=== PATIENT | male | born 1980 | race Caucasian/White ===

== ENCOUNTER 2022-09-15 01:22 | Outpatient (CLI) | payer MEDICAID, SELFPAY ==
--- NOTE | 2022-09-15 | DI.US_ITS ---
Exam(s) US HERNIA EXAM: US HERNIA CLINICAL HISTORY: PAINFUL BULGE, ASSESS FOR HERNIA,K40.90. TECHNIQUE: Ultrasound was performed using standard protocol. COMPARISON: No exams were available for comparison FINDINGS: Sonographic assessment utilizing grayscale and color Doppler imaging was performed and targeted to th e area of clinical concern. There is a fatty containing right inguinal hernia measured at 6 x 1.5 x 2.6 cm with a roughly 2 2 bossman timeter neck. No adenopathy or fluid. IMPRESSION: Fatty containing right inguinal hernia. DATA REPOSITORY:
== END 2022-09-15 01:42 ==
PROVIDERS: Visit Provider Family Medicine
DX: K40.90 Unilateral inguinal hernia, without obstruction or gangrene, not specified as recurrent (principal)
CPT/HCPCS: 76857

== ENCOUNTER 2022-11-20 17:29 | Outpatient (CLI) | payer OTHER, SELFPAY ==
--- NOTE | 2022-11-20 13:30 | DI.RAD_ITS ---
Exam(s) XR HAND RT COMPLETE EXAM: XR HAND RT COMPLETE CLINICAL HISTORY: Crush Injury with Deformity - R Hand S67.20XA. TECHNIQUE: 2D digital imaging was performed of the right hand. Three images were obtained. AP, late ral and oblique views were obtained. COMPARISON: No exams were available for comparison FINDINGS: BONES: No acute fracture is present. No bony destructive lesion is seen. JOINTS: No dislocation present. SOFT TISSUE: Normal. IMPRESSION: Unremarkable radiographs of the right hand. DATA REPOSITORY: RADIATION DOSE DELIVERED:
== END 2022-11-20 17:49 ==
PROVIDERS: Visit Provider Nurse Practitioner Family
DX: S67.21XA Crushing injury of right hand, initial encounter
CPT/HCPCS: 73130

== ENCOUNTER 2023-06-26 19:22 | Emergency (ER) | payer MEDICAID, SELFPAY ==
[2023-06-26] VITALS (27 sets, daily range): BP systolic 107–158; BP diastolic 76–110; PULSE 86–102; RESP 8–30; TEMP 36.9; O2SAT 97–100
--- NOTE | 2023-06-26 19:15 | RT.EKG_ITS ---
APPROVED REPORT Exam: Resting ECG Reason for Exam: stroke sx Patient Location: E HR:105 bpm ECG Measurements Heart Rate 105 AXIS MA 204 P 69 QRSd 101 QRS 36 QT 344 T 50 QTc 455 Conclusion sinus tach normal axis no priors
--- NOTE | 2023-06-26 19:30 | DI.CT_ITS ---
Exam(s) CT HEAD - STROKE PROTOCOL EXAM: CT HEAD - STROKE PROTOCOL CLINICAL HISTORY: AMS, Tremor. TECHNIQUE: Imaging Protocol: Axial computed tomography images with coronal and sagittal reformatted images were created and reviewed COMPARISON: No exams were available for comparison FINDINGS: Ventricles and Extra axial spaces: Normal in size and morphology for the patient's age. Hemorrhage: None. Cerebral parenchyma: Normal. Midline shift: None. Brainstem/Cerebellum: Normal. Calvarium: Normal. Visualized Paranasal sinuses/Mastoids: Clear. Soft Tissues: Unremarkable. IMPRESSION: No acute intracranial process. RADIATION DOSE DELIVERED: Total DLP DATA REPOSITORY: All CT scans at this facility are submitted to the National Radiology Data Registry (NRDR) Dose Index Registry (DIR) with the [employer] (A[employer]). RADIATION OPTIMIZATION: All CT scans at this facility use at least one of these dose optimization te chniques: automated exposure control; mA and/or kV adjustment per patient size (includes targeted exa ms where dose is matched to clinical indication); or iterative reconstruction.
--- NOTE | 2023-06-26 19:38 | W.ED.GENAD ---
Discharge Plan Disposition Patient Disposition: Home Condition: Improving Discharge Details Clinical Impression: Speech abnormality, Stress reaction, Anxiety Primary Care Provider: None,None ED Provider: Karen Diego Home Meds and New Rx's Prescriptions: Continued methylphenidate HCl [Ritalin] 5 mg tablet 5 mg PO DAILY buprenorphine-naloxone [Suboxone] 4-1 mg film 1 film buccal Q24H Rx Instructions: place 1 strip/tab under (each) side of tongue atenolol 25 mg tablet 25 mg PO DAILY amitriptyline 100 mg tablet 100 mg PO QHS Discharge Instructions Instructions: Anxiety (ED) Additional Instructions: This time at this time there is no evidence of stroke. I do feel that this is from anxiety. Please follow-up with community connections and call 211 for resources if needed for housing. Follow up with primary care provider in 3-5 days. Return to ED sooner if any worsening headache, blurry vision, double vision, weakness on 1 side of your body or the other or concerns. Increase oral fluids. Please take Tylenol or Ibuprofen with food every 4-6 hours as needed for pain and swelling. Referrals: Marifer Lundy MD [ [facility] STAFF PHYSICIAN] - Return if symptoms worsen Discharge Data Discharge Physician: Karen Diego Medical Decision Making 43-year-old male presents to the ER via POV with a chief complaint of tremors, difficulty speaking and talking for the last 3 days which he reports he has had before but they usually go away. He denies any illicit drugs. He reports some left shoulder pain. He denies any chest pain no headache no blurry vision no dizziness. He is hypertensive and tachycardic upon arrival. Patient reports eating and drinking and swallowing okay. On initial presentation he has no obvious focal neurodeficits however he does have left eye lid droop and left gaze deviation. Director Of Emergency Nursing are equal bilaterally no leg drop, no pronator drift. No other facial droop. He is able to speak in full sentences during exam and is A&Ox3. Patient denies any illicit drug use. He does take methylphenidate 5 mg tablets daily, Suboxone 4 mg sublingual film, atenolol 25 mg tablet and 100 mg of amitriptyline at bedtime. Work-up ordered including CBC CMP serial troponins, urine drug screen, TCA level, urinalysis, CT head stroke protocol. CT head without contrast shows no acute abnormality. Patient is currently talking on the phone. Benadryl 25 mg IV ordered and normal saline. Will reevaluate after medication here UDS at this time labs are pending. Patient reevaluated after medication administration. His symptoms are largely improved at this time. Upon further discussion he states that he has been sleeping in his car for the last 2 weeks. Given community connections information and instructed to call 211 for assistance with housing placement and community resources. At this time I do feel that this could be related to anxiety and stress reaction. He verbalizes understanding. Patient remained hemodynamically stable throughout the remainder of his stay. Patient also placed on PCP establishment list with care management. Discussed home care, follow-up care and strict return instructions. This text was generated using [employer] system, please disregard any oddities of phrase or misspellings. Differential Diagnosis Differential Diagnosis: Includes but not limited to CVA, tardive dyskinesia, anxiety, substance use Medical Records Medical records reviewed: Yes I reviewed the patient's medical records. Imaging Data Radiologic Study: Imaging: CT Scan Radiologist's impression: V rad report: TECHNIQUE: Imaging protocol: Computed tomography of the head without contrast. Radiation optimization: All CT scans at this facility use at least one of these dose optimization techniques: automated exposure control; mA and/or kV adjustment per patient size (includes targeted exams where dose is matched to clinical indication); or iterative reconstruction. Other technique: STROKE PROTOCOL was implemented. COMPARISON: No relevant prior studies available. FINDINGS: Brain: Mild volume loss No hemorrhage. Unremarkable white matter. No mass effect. Cerebral ventricles: No ventriculomegaly. Paranasal sinuses: Visualized sinuses are unremarkable. No fluid levels. Mastoid air cells: Visualized mastoid air cells are well aerated. Bones/joints: Unremarkable. No acute fracture. Soft tissues: Unremarkable. IMPRESSION: No acute intracranial abnormality. ASSESSMENT: ASPECTS ([place] Stroke Program Early CT Score) is 10. Lab Data Lab results reviewed: Yes I reviewed the patient's lab results. Labs: Laboratory Tests Range/Units 06/26/23 06/26/23 06/26/23 19:30 19:30 19:42 WBC (4.4-10.8) 10^3/uL 9.79 RBC (4.36-5.78) 10^6/uL 4.62 Hgb (13.5-17.5) g/dL 13.5 Hct (40.0-50.0) % 39.9 L MCV (80-95) fL 86 MCH (27.0-33.0) pg 29.2 MCHC (32.0-36.0) % 33.8 RDW (11.8-14.1) % 12.9 Plt Count (130-400) 10^3/uL 280 MPV (8.0-11.0) fL 8.8 Immature Gran % 0.2 Neutrophils % 51.6 Lymphocytes % 33.4 Monocytes % 8.1 Eosinophils % 6.0 Basophils % 0.7 Nucleated RBC % (0.0-0.3) % 0.0 Absolute Neutrophils (1.2-6.7) 10^3/uL 5.05 Absolute Lymphocytes (1.2-3.4) 10^3/uL 3.27 Absolute Monocytes (0.1-0.8) 10^3/uL 0.79 Absolute Eosinophils (0.0-0.7) 10^3/uL 0.59 Absolute Basophils (0.0-0.2) 10^3/uL 0.07 VBG pH (7.31-7.41) 7.39 VBG pCO2 (41-51) mmHg 48 VBG pO2 mmHg 33 VBG HCO3 (23-28) mmol/L 29 H VBG Total CO2 (24-29) mmol/L 26 VBG O2 Saturation % 62 VBG Base Excess (-2-3) mmol/L 4 H Sodium (136-145) mmol/L 137 Potassium (3.5-5.1) mmol/L 3.8 Chloride (98-107) mmol/L 101 Carbon Dioxide (21.0-32.0) mmol/L 28.8 Anion Gap (3-11) mmol/L 7.2 BUN (7-18) mg/dL 20 H Creatinine (0.70-1.30) mg/dL 0.9 Est GFR (CKD-EPI 2020) (mL/min/1.73m2) 107.33 Glucose (74-106) mg/dL 94 Calcium (8.5-10.1) mg/dL 9.6 Magnesium (1.8-2.4) mg/dL 2.4 Total Bilirubin (0.2-1.0) mg/dL 0.6 AST (15-37) U/L 103 H ALT (16-63) U/L 39 Alkaline Phosphatase (46-116) U/L 114 Troponin I (<or=60) ng/L < 50 Total Protein (6.4-8.2) g/dL 8.4 H Albumin (3.4-5.0) g/dL 4.1 Urine Color (Yellow) Yellow Urine Clarity (Clear) Clear Urine pH (5-8) 5.5 Ur Specific [place] (1.005-1.025) >= 1.030 H Urine Protein (Negative) mg/dL Negative Urine Ketones (Negative) mg/dL Negative Urine Blood (Negative) Negative Urine Nitrite (Negative) Negative Urine Bilirubin (Negative) Negative Urine Urobilinogen (Up to 0.2) mg/dL 0.2 Ur Leukocyte Esterase (Negative) Negative Urine Glucose (Negative) mg/dL Negative Urine Opiates Screen (Negative) Negative Urine Methadone Screen (Negative) Negative Ur Barbiturates Screen (Negative) Negative Ur Tricyclics Screen (Negative) Positive A Ur Amphetamines Screen (Negative) Negative U Benzodiazepines Scrn (Negative) Negative Urine Cocaine Screen (Negative) Negative Ur THC Screen (Negative) Negative Ethyl Alcohol (<10) mg/dL < 3.0 Cancelled Add-On Test Request DONE HPI General Mode of arrival: ambulatory. Date/Time Provider Initiated Documentation: 06/26/23 19:31. Limitations to Documentation: no limitations. Information obtained by: patient, RN notes reviewed and old records reviewed. HPI Narrative: 43-year-old male presents to the ER via POV with a chief complaint of tremors, difficulty speaking and talking for the last 3 days which he reports he has had before but they usually go away. He denies any illicit drugs. He reports some left shoulder pain. He denies any chest pain no headache no blurry vision no dizziness. He is hypertensive and tachycardic upon arrival. Patient reports eating and drinking and swallowing okay. On initial presentation he has no obvious focal neurodeficits however he does have left eye lid droop and left gaze deviation. Director Of Emergency Nursing are equal bilaterally no leg drop, no pronator drift. No other facial droop. He is able to speak in full sentences during exam and is A&Ox3. Patient denies any illicit drug use. He does take methylphenidate 5 mg tablets daily, Suboxone 4 mg sublingual film, atenolol 25 mg tablet and 100 mg of amitriptyline at bedtime. Related Data Home Medications Medication Instructions Recorded Confirmed atenolol 25 mg tablet 25 mg PO DAILY 11/21/22 06/26/23 buprenorphine 4 mg-naloxone 1 mg 1 film buccal Q24H 11/21/22 06/26/23 sublingual film (Suboxone) methylphenidate HCl 5 mg tablet 5 mg PO DAILY 11/21/22 06/26/23 (Ritalin) amitriptyline 100 mg tablet 100 mg PO QHS 06/26/23 06/26/23 Allergies Allergy/AdvReac Type Severity Reaction Status Date / Time No Known Allergies Allergy Verified 06/26/23 19:31 General Stated Complaint: CVA/TIA NOLAN: 2 Review of Systems All systems reviewed & are unremarkable except as noted in HPI and below Eyes Eyes: Reports as per HPI ENT Ears, Nose, Mouth, and Throat: Reports disequilibrium Neurologic Neurologic: Reports as per HPI, Reports restless legs, Reports tremor(s) and Reports disequilibrium PFSH All Active Problems (Updated 06/26/23 @ 21:12 by Karen Diego NP) Anxiety (Chronic) Stress reaction (Acute) Speech abnormality (Acute) ADHD (Acute) Opioid use disorder (Acute) HTN (hypertension) (Chronic) Crush injury of hand (Acute) Surgical History Status post total hip replacement, right Status post total hip replacement, left Social History Smoking/Tobacco Use Status: Current every day Quit status: not considering quitting Smoking risk assessment performed?: Yes Alcohol Intake: former Substance use type: does not use Do you feel safe at home: Yes Do you feel safe in your relationship?: Yes Exam Narrative Exam Narrative: Constitutional: Alert and oriented x3. Appears stated age. Normal body habitus. Head: Normocephalic, no trauma. Eyes: Pupils PERRL, Red reflex noted, left eyelid droop noted during EOM exam, no eyelid discharge, or swelling. ENT: , External ear normal to inspection, no mastoid TTP, swelling, or erythema, no nasal discharge. Normal dentition, Chest: Sinus tachycardia, normal S1, S2, distal pulses intact. Resp: Lungs clear to auscultation bilaterally, no wheezes, rales, or rhonchi. Abdomen: Soft, non-distended, Normoactive bowel sounds all 4 quads. Musculoskeletal: Spastic gait, 5/5 strength to all four extremities. Skin: No suspicious rashes or lesions. Capillary refill less than 2 sec. Neurologic: Cranial nerves II-XII intact. Alert and oriented x 3. Motor: No deficits noted. Sensory: Intact bilaterally all 4 extremities. . Hematologic/Lymphatic: No ecchymosis, no lymphadenopathy. Neuro General: patient awake, patient oriented x3 and CN's II-XI intact bilaterally Cranial Nerves: facial strength normal and tongue midline Speech: abnormal speech stuttering Gait: other (Spastic) Motor: muscle tone normal throughout, strength 5/5 throughout, no pronator drift, fasciculations bilateral involving the distal lower extremity and movement abnormality noted Psych Speech and Movement: agitated and restless Mood: anxious mood Course Reevaluation(s) Reevaluation: Upon reevaluation patient is alert and oriented x4 he denies any pain. 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 After further discussion he has been under a lot of stress in the last couple of weeks and is currently homeless living in his car. At this time most likely diagnosis and working diagnosis is anxiety. Patient was given resources for 211 and community connections. Plan is for discharge with strict return instructions. Time: 21:04 Vital Signs Vital signs: Vital Signs Pulse 102 H 06/26/23 19:26 Respiratory Rate 19 06/26/23 19:26 Blood Pressure 158/100 H 06/26/23 19:26 Pulse Oximetry 100 06/26/23 19:26 Pulse 102 H 06/26/23 19:26 Respiratory Rate 19 06/26/23 19:26 Blood Pressure 158/100 H 06/26/23 19:26 Blood Pressure Position Sitting 06/26/23 19:26 Pulse Oximetry 100 06/26/23 19:26 Oxygen Delivery Method Room Air 06/26/23 19:26 Oxygen Flow Rate 0 06/26/23 19:26 Pain Level 0 06/26/23 19:26
[2023-06-26 19:49] LABS: Lab Add On Test DONE
[2023-06-26 19:52] LABS: Abs Immature Grans 0.02 10^3/uL (0.0-0.06); Absolute Basophil Count 0.07 10^3/uL (0.0-0.2); Absolute Eosinophil Count 0.59 10^3/uL (0.0-0.7); Absolute Lymphocyte Count 3.27 10^3/uL (1.2-3.4); Absolute Monocyte Count 0.79 10^3/uL (0.1-0.8); Absolute Neutrophil Count 5.05 10^3/uL (1.2-6.7); BE (Venous) 4 mmol/L (-2-3); Basophils % 0.7; HCO3 (Venous) 29 mmol/L (23-28); HCT 39.9 % (40.0-50.0); HGB 13.5 g/dL (13.5-17.5); Immature Grans % 0.2; Lymphocytes % 33.4; MCH 29.2 pg (27.0-33.0); MCHC 33.8 % (32.0-36.0); MCV 86 fL (80-95); MPV 8.8 fL (8.0-11.0); Monocytes % 8.1; Neutrophils % 51.6; O2 Sat (Venous) 62 %; Platelet Count 280 10^3/uL (130-400); RBC 4.62 10^6/uL (4.36-5.78); RDW 12.9 % (11.8-14.1); RDW-SD 40.5 fL; TCO2 (Venous) 26 mmol/L (24-29); WBC 9.79 10^3/uL (4.4-10.8); pCO2 (Venous) 48 mmHg (41-51); pH (Venous) 7.39 (7.31-7.41); pO2 (Venous) 33 mmHg
--- NOTE | 2023-06-26 19:56 | DI.VRAD_ITS ---
PROCEDURE INFORMATION: Exam: CT Head Without Contrast Exam date and time: 06/26/2023 7:48 PM Age: 43 years old Clinical indication: Stroke-like symptoms; Altered mental status/memory loss and other: Tremor; Additional info: AMS. Tremor TECHNIQUE: Imaging protocol: Computed tomography of the head without contrast. Radiation optimization: All CT scans at this facility use at least one of these dose optimization techniques: automated exposure control; mA and/or kV adjustment per patient size (includes targeted exams where dose is matched to clinical indication); or iterative reconstruction. Other technique: STROKE PROTOCOL was implemented. COMPARISON: No relevant prior studies available. FINDINGS: Brain: Mild volume loss No hemorrhage. Unremarkable white matter. No mass effect. Cerebral ventricles: No ventriculomegaly. Paranasal sinuses: Visualized sinuses are unremarkable. No fluid levels. Mastoid air cells: Visualized mastoid air cells are well aerated. Bones/joints: Unremarkable. No acute fracture. Soft tissues: Unremarkable. IMPRESSION: No acute intracranial abnormality. ASSESSMENT: ASPECTS ([place] Stroke Program Early CT Score) is 10. Dictated and Authenticated by: Lukasz Thompson MD. Ordering:INDIRA Jones MD
[2023-06-26 20:11] LABS: ALT 39 U/L (16-63); AST 103 U/L (15-37); Albumin 4.1 g/dL (3.4-5.0); Alkaline Phosphatase 114 U/L (46-116); Anion Gap 7.2 mmol/L (3-11); BUN 20 mg/dL (7-18); Bilirubin, Total 0.6 mg/dL (0.2-1.0); CO2 28.8 mmol/L (21.0-32.0); CREATININE 0.9 mg/dL (0.70-1.30); Calcium 9.6 mg/dL (8.5-10.1); Chloride 101 mmol/L (98-107); ETHANOL BLOOD < 3.0 mg/dL (<10); Estimated GFR 107.33 (mL/min/1.73m2); Glucose 94 mg/dL (74-106); Magnesium 2.4 mg/dL (1.8-2.4); Potassium 3.8 mmol/L (3.5-5.1); Sodium 137 mmol/L (136-145); Total Protein 8.4 g/dL (6.4-8.2); Troponin I < 50 ng/L (<or=60)
[2023-06-26] MEDS: diphenhydrAMINE 50 MG/ML VIAL 25 MG IVP (20:13)
[2023-06-26] MEDS: Normal Saline 1,000 ML 1000 ML IV (20:13)
[2023-06-26 20:18] LABS: Bilirubin Negative (Negative); Blood Negative (Negative); Clarity Clear (Clear); Glucose Negative (Negative); Ketones Negative (Negative); Leukocyte Esterase Negative (Negative); Nitrite Negative (Negative); Specific Gravity >= 1.030 (1.005-1.025); Urobilinogen 0.2 mg/dL (Up to 0.2); pH 5.5 (5-8)
[2023-06-26 20:24] LABS: *AMPHETAMINES SCREEN URINE Negative (Negative); *BARBITURATES SCREEN URINE Negative (Negative); *BENZODIAZEPINES SCREEN URINE Negative (Negative); Cannabinoids THC Negative (Negative); Cocaine Screen,Urine Negative (Negative); METHADONE URINE SCREEN Negative (Negative); OPIATES URINE SCREEN Negative (Negative)
[2023-06-26 20:27] LABS: Tricyclic Antidepressants Positive (Negative)
== END 2023-06-26 21:54 | disposition home or self-care (01) ==
PROVIDERS: Emergency Provider Registered Nurse Emergency
DX: F41.9 Anxiety disorder, unspecified (principal); F43.0 Acute stress reaction; R47.9 Unspecified speech disturbances
CPT/HCPCS: 80053; 80307; 82805; 82962; 93005; 96361; 96374; 99284; 70450; 80320; 81003; 83735; 84484; 85025; 93010; J1200

== ENCOUNTER 2023-08-05 09:42 | Emergency (ER) | payer MEDICAID, SELFPAY ==
[2023-08-05 09:45] VITALS: BP 137/75; PULSE 94; RESP 18; TEMP 36.6; O2SAT 97
--- NOTE | 2023-08-05 09:45 | DI.RAD_ITS ---
Exam(s) XR FOREARM RT XR HAND RT COMPLETE EXAM: XR HAND RT COMPLETE and XR forearm RT CLINICAL HISTORY: Right hand pain. TECHNIQUE: 2D digital imaging was performed of the right forearm and hand. Six images were obtained . AP, lateral and oblique views were obtained. COMPARISON: CR XR HAND RT COMPLETE from 11/20/2022 CR,XR XR FOREARM RT from 08/05/2023 FINDINGS: BONES: No acute fracture is present. No bony destructive lesion is seen. JOINTS: No dislocation present. There is no change in alignment of the hand compared to the prior exa mination. The joint spaces are well maintained. The V Rad report suggested stable mild subluxation of the 4th and 5th CMC joints. A CT scan may be obtained for further evaluation if clinically indica stephanie. SOFT TISSUE: There is a 2 cm calcification in the anterior joint space of the elbow causing chronic d eformity of the anterior distal humerus. IMPRESSION: 1. No acute fracture or dislocation. 2. 2 cm osseous fragment anterior to the distal humerus which appears chronic. 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 3. Stable alignment of the carpometacarpal joints as described above. DATA REPOSITORY: RADIATION DOSE DELIVERED:
--- NOTE | 2023-08-05 09:45 | W.ED.GENAD ---
Discharge Plan Disposition Patient Disposition: Home Discharge Details Clinical Impression: Hand pain, right, Swelling of right hand Primary Care Provider: Unknown,Unknown ED Provider: José Miguel Deutsch Home Meds and New Rx's Prescriptions: Continued methylphenidate HCl [Ritalin] 5 mg tablet 5 mg PO DAILY buprenorphine-naloxone [Suboxone] 4-1 mg film 1 film buccal Q24H Rx Instructions: place 1 strip/tab under (each) side of tongue atenolol 25 mg tablet 25 mg PO DAILY amitriptyline 100 mg tablet 100 mg PO QHS Discharge Instructions Additional Instructions: ReceivedYou are seen in the emergency department for your hand pain. Your x-ray showed no sign of any fractures. Splint which you should wear for the next several days. Please return to the emergency department as we discussed if you develop worsening hand pain or swelling. Otherwise please follow-up with primary care next week. HPI General Date/Time Provider Initiated Documentation: 08/05/23 09:44. HPI Narrative: MDM This is an overall very well-appearing normothermic and not tachycardic 43-year-old male with right hand swelling pain and trauma yesterday concerning for possibility of fracture for which patient will undergo plain films. No pain out of proportion to suggest necrotizing soft tissue infection. No lacerations to suggest open fracture. No bilateral hand swelling or history of diabetes nor hypertension to suggest acute renal failure. Patient took ibuprofen 1 hour ago so we will treat with acetaminophen. Will reassess following plain films. 11 AM Plain films read as no acute fractures on preliminary virtual radiology read: Exam: XR Right Forearm Exam date and time: 08/05/2023 10:16 AM Age: 43 years old Clinical indication: Injury or trauma; Other: Injured while logging; Blunt trauma (contusions or hematomas); Arm, lower; Right TECHNIQUE: Imaging protocol: Radiologic exam of the right forearm. Views: 2 views. COMPARISON: CR XR HAND RT COMPLETE 08/05/2023 10:15 AM FINDINGS: Bones/joints: There may be a chronic subluxation of multiple carpometacarpal joints. . 2.5 cm ossific fragment anterior to the distal humerus is well corticated and has a chronic appearance. Degenerative changes in the humeroulnar joint. No definite fracture of the radius or ulnar shafts. Soft tissues: Normal. IMPRESSION: 1. There may be a chronic subluxation of multiple carpometacarpal joints. . 2. 2.5 cm ossific fragment anterior to the distal humerus is well corticated and has a chronic appearance. 3. No definite fracture of the radius or ulnar shafts. Thank you for allowing us to participate in the care of your patient. Dictated and Authenticated by: Hamilton Whitlock MD Exam: XR Right Hand Exam date and time: 08/05/2023 10:15 AM Age: 43 years old Clinical indication: Injury or trauma; Other: Injured while logging; Blunt trauma (contusions or hematomas); Injury date: 08/05/23; Injury details: Attention 4th 5th. Patient has previous right hand injuried as a boxer TECHNIQUE: Imaging protocol: Radiologic exam of the right hand. Views: 3 or more views. COMPARISON: CR XR HAND RT COMPLETE 11/20/2022 1:44 PM FINDINGS: Bones/joints: There may be a chronic subluxation at the 4th and 5th carpometacarpal joints. This appearance was present in November 2022. Well corticated fragments noted along the dorsal aspect of the carpometacarpal joints on the lateral consistent with the history of prior injury No acute fracture. Soft tissues: Soft tissue swelling over the dorsum of the hand IMPRESSION: 1. There may be a chronic subluxation at the 4th and 5th carpometacarpal joints. This appearance was present in November 2022. 2. No acute fracture. Thank you for allowing us to participate in the care of your patient. Dictated and Authenticated by: Hamilton Whitlock MD 08/05/2023 10:39 AM Eastern Time ([place] & [place] Given significant swelling and tenderness will treat conservatively with a removable wrist brace pending radiology final read. Patient did report significant discomfort. He was going to get a ride to drive him home and given his swelling and pain is certainly possible that he could have exacerbated an old injury. Will treat with single oral oxycodone in the ED as patient is going to get a ride home. We discussed strict return indications including any worsening swelling worsening pain or inability to move fingers. He understood his return indications and was discharged with an empiric trial of expectant outpatient management. Chronic conditions affecting the care of the patient: N/A History obtained from an outside historian: N/A External record review: [facility] [place] [facility] Medications: Acetaminophen Social determinants of health affecting disposition: N/A Management discussed with: N/A Treatment/interventions considered: N/A Response to therapies provided: N/A HPI This is a 43-year-old [id number] male arrived to the emergency department via private vehicle in the setting of right hand pain. Patient reports that he was logging yesterday and was removing limbs from a tree when the saw kicked back and hit his right hand. He did not initially have pain but woke this morning with more significant pain and swelling. He took ibuprofen approximately 1 hour ago. 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 He did not fall nor strike his head. Exam General: Well-appearing in no acute distress speaking in complete sentences. Head: Normocephalic, atraumatic. Eye: Extraocular eye movements intact. No conjunctival injection. No scleral icterus. Ear, nose, mouth, throat: Grossly normal inspection. Normal voice, handling secretions normally. Neck: Trachea midline. Cardiovascular: Well-perfused distal extremities. Respiratory: Nonlabored respiration. Gastrointestinal: Nondistended abdomen. Musculoskeletal: Right hand with marked swelling primarily over the ulnar aspect along with associated tenderness. No ecchymosis. No lacerations. No rash. Right hand warm and well-perfused. Cap refill less than 2 seconds in the right fingertips. 2+ right radial pulse. Patient has decreased range of motion on flexion and extension in the right little and ring fingers secondary to pain. Patient also has some mild right forearm swelling and tenderness. Skin: Normal for age and race, grossly normal temperature and turgor. No acute rash. Neurologic: Alert and appropriate, no apparent acute deficits. Psychiatric: Mood and manner are appropriate. Grooming and personal hygiene are appropriate. Related Data Home Medications Medication Instructions Recorded Confirmed atenolol 25 mg tablet 25 mg PO DAILY 11/21/22 06/26/23 buprenorphine 4 mg-naloxone 1 mg 1 film buccal Q24H 11/21/22 06/26/23 sublingual film (Suboxone) methylphenidate HCl 5 mg tablet 5 mg PO DAILY 11/21/22 06/26/23 (Ritalin) amitriptyline 100 mg tablet 100 mg PO QHS 06/26/23 06/26/23 Allergies Allergy/AdvReac Type Severity Reaction Status Date / Time No Known Allergies Allergy Verified 06/26/23 19:31 General NOLAN: 2 PFSH All Active Problems (Updated 08/05/23 @ 11:01 by José Miguel Deutsch MD) Swelling of right hand (Acute) Hand pain, right (Acute) ADHD (Acute) Opioid use disorder (Acute) HTN (hypertension) (Chronic) Crush injury of hand (Acute) Surgical History Status post total hip replacement, right Status post total hip replacement, left Social History Smoking/Tobacco Use Status: Current every day Tobacco Type: cigarettes Quit status: not considering quitting Smoking risk assessment performed?: Yes Alcohol Intake: former Substance use type: does not use Do you feel safe at home: Yes Do you feel safe in your relationship?: Yes
[2023-08-05] MEDS: Acetaminophen 500 MG TAB 1000 MG PO (09:59)
--- NOTE | 2023-08-05 10:39 | DI.VRAD_ITS ---
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 Patient has previous right hand injuried as a boxer TECHNIQUE: Imaging protocol: Radiologic exam of the right hand. Views: 3 or more views. COMPARISON: CR XR HAND RT COMPLETE 11/20/2022 1:44 PM FINDINGS: Bones/joints: There may be a chronic subluxation at the 4th and 5th carpometacarpal joints. This appearance was present in November 2022. Well corticated fragments noted along the dorsal aspect of the carpometacarpal joints on the lateral consistent with the history of prior injury No acute fracture. Soft tissues: Soft tissue swelling over the dorsum of the hand IMPRESSION: 1. There may be a chronic subluxation at the 4th and 5th carpometacarpal joints. This appearance was present in November 2022. 2. No acute fracture. Dictated and Authenticated by: Hamilton Whitlock MD. Ordering:DMITRIY Valdez MD
--- NOTE | 2023-08-05 10:41 | DI.VRAD_ITS ---
PROCEDURE INFORMATION: Exam: XR Right Forearm Exam date and time: 08/05/2023 10:16 AM Age: 43 years old Clinical indication: Injury or trauma; Other: Injured while logging; Blunt trauma (contusions or hematomas); Arm, lower; Right TECHNIQUE: Imaging protocol: Radiologic exam of the right forearm. Views: 2 views. COMPARISON: CR XR HAND RT COMPLETE 08/05/2023 10:15 AM FINDINGS: Bones/joints: There may be a chronic subluxation of multiple carpometacarpal joints. . 2.5 cm ossific fragment anterior to the distal humerus is well corticated and has a chronic appearance. Degenerative changes in the humeroulnar joint. No definite fracture of the radius or ulnar shafts. Soft tissues: Normal. IMPRESSION: 1. There may be a chronic subluxation of multiple carpometacarpal joints. . 2. 2.5 cm ossific fragment anterior to the distal humerus is well corticated and has a chronic appearance. 3. No definite fracture of the radius or ulnar shafts. Dictated and Authenticated by: Hamilton Whitlock MD. Ordering:DMITRIY Valdez MD
[2023-08-05] MEDS: oxyCODONE 5 MG TAB PO (11:02)
--- NOTE | 2023-08-05 11:14 | NUR.NOTE ---
Splint applied to R wrist. PMS intact. PT tolerated wellNursing Note:
== END 2023-08-05 11:14 | disposition home or self-care (01) ==
PROVIDERS: Emergency Provider Emergency Medicine
DX: M79.641 Pain in right hand (principal); W22.8XXA Striking against or struck by other objects, initial encounter; Y93.89 Activity, other specified; I10 Essential (primary) hypertension; F11.20 Opioid dependence, uncomplicated; Z72.0 Tobacco use; Z79.899 Other long term (current) drug therapy
CPT/HCPCS: 29125; 99283; 73090; 73130; 99284

== ENCOUNTER 2024-03-01 11:32 | Emergency (ER) | payer MEDICAID, SELFPAY ==
[2024-03-01 11:34] VITALS: BP 148/103; PULSE 86; RESP 12; TEMP 36.2; O2SAT 97
--- NOTE | 2024-03-01 11:46 | ED.GENADUL_ITS ---
Discharge Plan Disposition Patient Disposition: Home Condition: Stable Discharge Details Clinical Impression: Dental infection Primary Care Provider: Unknown,Unknown ED Provider: Amari Diallo Home Meds and New Rx's Prescriptions: New amoxicillin-pot clavulanate 875-125 mg tablet 1 tab PO BID 7 Days Qty: 14 0RF No Action methylphenidate HCl [Ritalin] 5 mg tablet 5 mg PO DAILY buprenorphine-naloxone [Suboxone] 4-1 mg film 1 film buccal Q24H Rx Instructions: place 1 strip/tab under (each) side of tongue atenolol 25 mg tablet 25 mg PO DAILY amitriptyline 100 mg tablet 100 mg PO QHS zolpidem [Ambien] 10 mg tablet 10 mg PO QHS Discharge Instructions Instructions: Dental Pain Additional Instructions: Please return to the emergency department for any worsening symptoms. Follow-up close with primary doctor and dentist HPI General Date/Time Provider Initiated Documentation: 03/01/24 11:45 . HPI Narrative: 43-year-old male presents with tooth pain and swelling to face over the last day. Related Data Home Medications Medication Instructions Recorded Confirmed atenolol 25 mg tablet 25 mg PO DAILY 11/21/22 03/01/24 buprenorphine 4 mg-naloxone 1 mg 1 film buccal Q24H 11/21/22 03/01/24 sublingual film (Suboxone) methylphenidate HCl 5 mg tablet 5 mg PO DAILY 11/21/22 03/01/24 (Ritalin) amitriptyline 100 mg tablet 100 mg PO QHS 06/26/23 03/01/24 amoxicillin 875 mg-potassium 1 tab PO BID 7 days #14 tabs 03/01/24 clavulanate 125 mg tablet zolpidem 10 mg tablet (Ambien) 10 mg PO QHS 03/01/24 03/01/24 Previous Rx's Medication Instructions Recorded amoxicillin 875 mg-potassium 1 tab PO BID 7 days #14 tabs 03/01/24 clavulanate 125 mg tablet Allergies Allergy/AdvReac Type Severity Reaction Status Date / Time No Known Allergies Allergy Verified 06/26/23 19:31 General Stated Complaint: DentalOral NOLAN: 4 Review of Systems Narrative: Review of Systems Constitutional: negative Eyes: negative ENT: Dental infection Cardiovascular: negative Respiratory: negative Gastrointestinal: negative : negative Musculoskeletal: negative Skin: negative Neurologic: negative Psych: negative Exam Narrative Exam Narrative: Physical Examination General: alert, awake, cooperative, resting comfortably, no acute distress HEENT: normocephalic, atraumatic; PERRL, EOM intact, conjunctiva normal; no nasal discharge; moist mucous membranes, oral and pharyngeal mucosa normal, tolerating secretions; some swelling to maxillary soft tissue, multiple fractured carious teeth no definitive fluctuant pocket Neck: supple, trachea midline; full ROM Chest: normal to inspection Respiratory: normal respiratory effort, speaking in full sentences Neuro: AAOx3, normal speech, moving all extremities Psych: Appropriate mood and affect Course Vital Signs Vital signs: Vital Signs Temperature 36.2 C L 03/01/24 11:34 Pulse 86 03/01/24 11:34 Respiratory Rate 12 03/01/24 11:34 Blood Pressure 148/103 H 03/01/24 11:34 Pulse Oximetry 97 03/01/24 11:34 Temperature 36.2 C L 03/01/24 11:34 Temperature Source Temporal Artery Scan 03/01/24 11:34 Pulse 86 03/01/24 11:34 Respiratory Rate 12 03/01/24 11:34 Respiratory Effort Normal, Non-Labored 03/01/24 11:40 Blood Pressure 148/103 H 03/01/24 11:34 Blood Pressure Position Sitting 03/01/24 11:34 Pulse Oximetry 97 03/01/24 11:34 Oxygen Delivery Method Room Air 03/01/24 11:34 Oxygen Flow Rate 0 03/01/24 11:34 Pain Level 0 03/01/24 11:34 Medical Decision Making 43-year-old male presents with right upper dental infection, evidence of multiple fractured and carious teeth, no definitive fluctuant pocket, some induration and swelling to maxillary soft tissue, will start Augmentin and dose Toradol here in department. No evidence of deep space infection of head or neck. No periapical abscess amenable to bedside drainage. No airway compromise. No neurologic symptomatology. Patient given home care instructions and return precautions Quality:SDOH Health Related Social Needs: No Data to Display PFSH All Active Problems (Updated 03/01/24 @ 11:48 by Amari Diallo MD) Dental infection (Acute) ADHD (Acute) Opioid use disorder (Acute) HTN (hypertension) (Chronic) Crush injury of hand (Acute) Surgical History Status post total hip replacement, right Status post total hip replacement, left Social History Smoking/Tobacco Use Status: Current every day Tobacco Type: cigarettes Quit status: not considering quitting Smoking risk assessment performed?: Yes Alcohol Intake: former Substance use type: does not use Do you feel safe at home: Yes Do you feel safe in your relationship?: Yes
[2024-03-01] MEDS: Amoxicillin 875/Clav. 125 TAB PO (11:49)
[2024-03-01] MEDS: Ketorolac 10 MG TAB PO (11:49)
== END 2024-03-01 11:53 | disposition home or self-care (01) ==
PROVIDERS: Emergency Provider Emergency Medicine
DX: R68.84 Jaw pain (principal); K04.7 Periapical abscess without sinus
CPT/HCPCS: 99283

== ENCOUNTER 2024-08-20 16:10 | Emergency (ER) | payer MEDICAID, SELFPAY ==
[2024-08-20 16:12] VITALS: BP 144/77; PULSE 86; RESP 22; TEMP 36.8; O2SAT 99
--- NOTE | 2024-08-20 16:25 | ED.GENADUL_ITS ---
Discharge Plan Disposition Patient Disposition: Home Condition: Stable Discharge Details Clinical Impression: Left shoulder pain Primary Care Provider: Collin Jones ED Provider: Wenceslao Dimas Home Meds and New Rx's Prescriptions: Continued buprenorphine-naloxone [Suboxone] 4-1 mg film 1 film buccal Q24H Rx Instructions: place 1 strip/tab under (each) side of tongue atenolol 25 mg tablet 25 mg PO DAILY amitriptyline 100 mg tablet 100 mg PO QHS ibuprofen 800 mg tablet 800 mg PO Q8H Patient Comments: TAKE 1 TABLET BY MOUTH EVERY 8 HOURS NEEDED FOR PAIN duloxetine 60 mg capsule,delayed release(DR/EC) 60 mg PO DAILY Patient Comments: TAKE 2 CAPSULES BY MOUTH EVERY DAY Discharge Instructions Additional Instructions: Your x-ray shows you have degenerative changes or arthritis. Follow-up with your orthopedist or primary care especially if your pain continues If you feel more ill or have new symptoms such as high fevers return to the emergency department for reevaluation HPI General Mode of arrival: ambulatory . Date/Time Provider Initiated Documentation: 08/20/24 16:11 . Limitations to Documentation: no limitations . Information obtained by: patient . History of Present Illness 44 year old M presents to the emergency department with the chief complaint of left shoulder pain, described as moderate, Quality is described as aching, and is localized to the left and upper extremity. Patient reports no radiation. Patient started experiencing this month(s) (5) and it has been constant. No relieving factors improve symptom(s), No exacerbating factors reported . Patient notes no other symptoms.. Patient did receive the following treatments prior to arrival, none Related Data Home Medications ?Medication ?Instructions ?Recorded ?Confirmed atenolol 25 mg tablet 25 mg PO DAILY 11/21/22 08/20/24 buprenorphine 4 mg-naloxone 1 mg 1 film buccal Q24H 11/21/22 08/20/24 sublingual film (Suboxone) amitriptyline 100 mg tablet 100 mg PO QHS 06/26/23 08/20/24 duloxetine 60 mg capsule,delayed 60 mg PO DAILY 08/20/24 08/20/24 release ibuprofen 800 mg tablet 800 mg PO Q8H 08/20/24 08/20/24 Allergies Allergy/AdvReac Type Severity Reaction Status Date / Time No Known Allergies Allergy Verified 08/20/24 16:14 General Stated Complaint: Orthopedic NOLAN: 4 Review of Systems All systems reviewed & are unremarkable except as noted in HPI and below Constitutional Constitutional: Denies chills, Denies fever(s) and Denies weakness Cardiovascular Cardiovascular: Denies chest pain and Denies dyspnea Respiratory Respiratory: Denies dyspnea Gastrointestinal Gastrointestinal: Denies vomiting Musculoskeletal Musculoskeletal: Reports arthralgias and Denies joint swelling Neurologic Neurologic: Denies weakness Exam Const General: no acute distress Orientation: alert HENMT Head: normal to inspection Ears: external ears normal General nose exam: external nose normal Mouth: moist mucous membranes Eyes General: appearance normal, both eyes and all related structures Neck Neck: normal visual inspection Resp Effort & Inspection: normal respiratory effort and able to speak in complete sentences Cardio Rate: regular rate Skin General skin exam: no rashes or lesions noted Neuro General: patient alert and patient oriented x3 Extrem General: abnormal ROM and capillary refill normal Psych Mental Status: mental status grossly normal Course Vital Signs Vital signs: Vital Signs Temperature 36.8 C 08/20/24 16:12 Pulse 86 08/20/24 16:12 Respiratory Rate 22 08/20/24 16:12 Blood Pressure 144/77 H 08/20/24 16:12 Pulse Oximetry 99 08/20/24 16:12 Temperature 36.8 C 08/20/24 16:12 Pulse 86 08/20/24 16:12 Respiratory Rate 22 08/20/24 16:12 Blood Pressure 144/77 H 08/20/24 16:12 Pulse Oximetry 99 08/20/24 16:12 Pain Level 7 08/20/24 16:12 Medical Decision Making 44-year-old male says he send multiple left shoulder surgeries for torn ligament or rotator cuff injuries, last being approximately 10 years ago comes in with 4 to 5 months of increased pain especially with range of motion of his left shoulder. Denies any fevers, chills, chest pain, difficulty breathing. Denies any swelling of the arm. He has reproducible tenderness to the anterior and posterior left shoulder. No erythema or warmth. Intact distal sensation and pulses. I suspect arthritis given his prior surgeries but will obtain x-rays to exclude entities such as pathological fracture. If x-ray is negative he will likely need follow-up with either his PCP or orthopedics for reexam and possibly MRI. X-ray shows no acute findings, has degenerative changes and a evidence of a loose body. Patient stable, discussed results with him, he says he has an orthopedist that he will follow-up with, return precautions given Differential Diagnosis Differential Diagnosis: Sprain, strain, arthritis Quality:SDOH Health Related Social Needs: No Data to Display PFSH All Active Problems (Updated 08/20/24 @ 17:23 by Wenceslao Dimas MD) Left shoulder pain (Acute) ADHD (Acute) Opioid use disorder (Acute) HTN (hypertension) (Chronic) Crush injury of hand (Acute) Surgical History Status post total hip replacement, right Status post total hip replacement, left Social History Smoking/Tobacco Use Status: Current every day Tobacco Type: cigarettes Quit status: not considering quitting Smoking risk assessment performed?: Yes Alcohol Intake: former Substance use type: does not use Housing: apartment Do you feel safe at home: Yes Do you feel safe in your relationship?: Yes
--- NOTE | 2024-08-20 17:01 | DI.RAD_ITS ---
Exam(s) XR SHOULDER LT COMPLETE 2+V EXAM: XR SHOULDER LT COMPLETE 2+V CLINICAL HISTORY: prior rotator cuff surgeries, pain 1-2 months. TECHNIQUE: 2D digital imaging was performed. Three views. COMPARISON: CR,XR XR FOREARM RT from 08/05/2023 FINDINGS: BONES: No acute fracture is present. No bony destructive lesion is seen. Two screws are noted in the anterior glenoid. JOINTS: No dislocation present. Narrowing of the glenohumeral joint and periarticular spurring. Mil d spurring at the AC joint.. SOFT TISSUE: Large loose body seen inferior to the humeral head. IMPRESSION: No acute abnormality. Advanced degenerative changes of the glenohumeral joint and large inferior loose body. DATA REPOSITORY: RADIATION DOSE DELIVERED:
[2024-08-20 17:13] VITALS: BP 141/95; PULSE 66; RESP 16; O2SAT 96
== END 2024-08-20 17:27 | disposition home or self-care (01) ==
PROVIDERS: Emergency Provider Emergency Medicine; PCP Family Medicine
DX: M25.512 Pain in left shoulder (principal); M24.012 Loose body in left shoulder; F17.210 Nicotine dependence, cigarettes, uncomplicated
CPT/HCPCS: 99283; 73030

== ENCOUNTER 2024-12-17 17:13 | Outpatient (REF) | payer MEDICAID, SELFPAY ==
[2024-12-17 19:01] LABS: *AMPHETAMINES SCREEN URINE Negative (Negative); *BARBITURATES SCREEN URINE Negative (Negative); *BENZODIAZEPINES SCREEN URINE Negative (Negative); Cannabinoids THC Negative (Negative); Cocaine Screen,Urine Negative (Negative); METHADONE URINE SCREEN Negative (Negative); OPIATES URINE SCREEN Negative (Negative)
[2024-12-17 19:02] LABS: Tricyclic Antidepressants Positive (Negative)
[2024-12-24 12:26] LABS: Buprenorphine 202.9 ng/mL (Cutoff: 5.0); Norbuprenorphine 846.4 ng/mL (Cutoff: 2.5)
[2024-12-31 16:46] LABS: Naloxone Confirmation Total Ur 450 ng/mL
== END 2024-12-17 17:14 | disposition home or self-care (01) ==
LOC: LBN 17:13
PROVIDERS: PCP Family Medicine; Visit Provider Emergency Medicine
DX: F11.20 Opioid dependence, uncomplicated (principal)
CPT/HCPCS: 80307; 80348

== ENCOUNTER 2025-04-29 19:43 | Outpatient (REF) | payer MEDICAID, SELFPAY ==
[2025-04-29 13:08] LABS: Cannabinoids THC Negative (Negative); METHADONE URINE SCREEN Negative (Negative)
[2025-05-13 09:44] LABS: Naloxone Confirmation Total Ur >2000 ng/mL; Reporting Limit 5.0 ng/mL
== END 2025-04-29 19:44 | disposition home or self-care (01) ==
LOC: LBN 19:43
PROVIDERS: PCP Family Medicine; Visit Provider Emergency Medicine
DX: F11.20 Opioid dependence, uncomplicated (principal)
CPT/HCPCS: 80307; 80348

== ENCOUNTER 2025-06-09 19:30 | Outpatient (REF) | payer MEDICAID, SELFPAY ==
[2025-06-09 19:50] LABS: Cannabinoids THC Negative (Negative); METHADONE URINE SCREEN Negative (Negative)
[2025-06-22 14:27] LABS: Naloxone Confirmation Total Ur 1700 ng/mL; Reporting Limit 5.0 ng/mL
== END 2025-06-09 19:31 | disposition home or self-care (01) ==
LOC: LBN 19:30
PROVIDERS: PCP Family Medicine; Visit Provider Emergency Medicine
DX: F11.20 Opioid dependence, uncomplicated (principal)
CPT/HCPCS: 80307; 80348